=== PATIENT | female | born 1955 | race Caucasian/White ===

== ENCOUNTER 2018-09-06 20:35 | Emergency (ER) | payer BC ==
[2018-09-06 20:45] VITALS: BP 153/80
[2018-09-06] MEDS ORDERED: Alum Hydrox/Mag Hydrox/Simeth 30 ML, Lidocaine 2% 15 ML PO ONE ×2 (22:21)
--- NOTE | 2018-09-06 22:29 | EDM.PDOC ---
ED HPI GENERAL MEDICAL PROBLEM - General Chief Complaint: Chest Pain Stated Complaint: CHEST PAIN Time Seen by Provider: 09/06/18 20:56 Source of Information: Reports: Patient, Family History Limitations: Reports: No Limitations - History of Present Illness INITIAL COMMENTS - FREE TEXT/NARRATIVE: 63 yo F comes to the ED today with and daughter for chest pain radiating to her L arm and jaw since around 6pm. Pt is not the best historian. She states she has had this kind of pain before, was worked up here and [place] a few years ago but was not diagnosed with heart attack or CAD that the pt can remember. She does have a family h/o "heart issues", she is unsure what her mother had but her father did have DC. She took 4 baby ASA at home and Tums with no relief. She also c/o of mild headache and some nausea. She denies F /C, V/D, cough, runny nose, SOB or any other symptoms at this time. She does have a h/o of GERD, hiatal hernia, and lap band and used to take Gaviscon and Zantac after having an endoscopy "many years ago". She was only on it for 6 months and has not followed up with GI since. She did have "spicy" pork chops tonight, which may be contributing to her pain. She also does admit to some stress in her life as she just quit her job in May and "feels bad" for the people still there. PCP is in [place]. Left Chest Pain Score (Numeric/FACES): 4 - Related Data Allergies Allergy/AdvReac Type Severity Reaction Status Date / Time Ufketga-Cfq-Qyp Reductase AdvReac Muscle Verified 09/06/18 20:45 Inhibitor Aches Home Meds: Home Meds Atenolol 50 mg PO DAILY 09/02/15 [History] Cholecalciferol (Vitamin D3) [Vitamin D3] 1,000 unit PO DAILY 09/02/15 [History] Losartan [Cozaar] 50 mg PO DAILY 09/02/15 [History] Naproxen Sodium [Aleve] 220 mg PO Q6HR PRN 09/02/15 [History] Triamterene/Hydrochlorothiazid [Triamterene-HCTZ 37.5-25 MG] 1 tab PO DAILY 07/19 [History] Past Medical History HEENT History: Reports: Impaired Vision Other HEENT History: wears glasses Cardiovascular History: Reports: High Cholesterol, Hypertension Respiratory History: Reports: Sleep Apnea, Other (See Below) Other Respiratory History: wears CPAP Gastrointestinal History: Reports: GERD, Hiatal Hernia Genitourinary History: Reports: Renal Calculus Musculoskeletal History: Reports: Osteoarthritis, Other (See Below) Neurological History: Reports: Headaches, Chronic Endocrine/Metabolic History: Reports: Obesity/BMI 30+ Dermatologic History: Reports: Other (See Below) Other Dermatologic History: skin tags - Past Surgical History GI Surgical History: Reports: Cholecystectomy, Colonoscopy Musculoskeletal Surgical History: Reports: Knee Replacement Social & Family History - Tobacco Use Smoking Status *Q: Never Smoker - Caffeine Use Caffeine Use: Reports: Coffee - Recreational Drug Use Recreational Drug Use: No - Living Situation & Occupation Living situation: Reports: , with Family ED ROS GENERAL - Review of Systems Review Of Systems: ROS reveals no pertinent complaints other than HPI. ED EXAM, GENERAL - Physical Exam Exam: See Below Exam Limited By: No Limitations (not the best historian) General Appearance: Alert, WD/WN, Anxious Eye Exam: Bilateral Eye: EOMI, Normal Inspection, PERRL Ears: Normal External Exam, Hearing Grossly Normal Nose: Normal Inspection, Normal Mucosa, No Blood Throat/Mouth: Normal Inspection, Normal Lips, Normal Teeth, Normal Gums, Normal Oropharynx, Normal Voice, No Airway Compromise Head: Atraumatic, Normocephalic Neck: Normal Inspection, Supple, Non-Tender, Full Range of Motion Respiratory/Chest: No Respiratory Distress, Lungs Clear, Normal Breath Sounds, No Accessory Muscle Use, Chest Non-Tender Cardiovascular: Normal Peripheral Pulses, Regular Rate, Rhythm, No Edema, No Gallop, No JVD, No Murmur, No Rub, Other (distant heart sounds) GI/Abdominal: Normal Bowel Sounds, Soft, Non-Tender, No Organomegaly, No Distention, No Abnormal Bruit, No Mass Back Exam: Normal Inspection Extremities: Normal Inspection, Normal Range of Motion, Non-Tender, Normal Capillary Refill, No Pedal Edema Psychiatric: Anxious Skin Exam: Warm, Dry, Intact, Normal Color, No Rash Course - Vital Signs Last Recorded V/S: Last Vital Signs Temp 96.7 F 09/06/18 20:39 Pulse 62 09/06/18 20:39 Resp 26 H 09/06/18 20:39 BP 153/80 H 09/06/18 20:39 Pulse Ox 98 09/06/18 20:39 - Orders/Labs/Meds Orders: Active Orders 24 hr Category Date Time Status EKG Documentation Completion [RC] ASDIRECTED Care 09/06/18 20:58 Active CXR [Chest 1V Frontal] [CR] Stat Exams 09/06/18 20:57 Taken EKG 12 Lead [EK] Stat Ther 09/06/18 20:57 Ordered Labs: Laboratory Tests 09/06/18 Range/Units 21:00 CK-MB (CK-2) 1.3 (0-3.6) ng/ml Troponin I 0.026 (0.00-0.056) ng/mL C-Reactive Protein 1.0 (<1.0) mg/dL Meds: Medications Discontinued Medications Generic Name Dose Route Start Last Admin Trade Name Freq PRN Reason Stop Dose Admin Al Hydroxide/Mg Hydroxide 30 0 ml 09/06/18 22:21 09/06/18 22:34 ml/ Lidocaine HCl 15 ml PO 09/06/18 22:22 45 ml ONETIME ONE Administration - Re-Assessments/Exams Free Text/Narrative Re-Assessment/Exam: 09/06/18 20:57 I have ordered CXR, Troponin, CKMB, CPR, EKG 09/06/18 22:31 EKG shows NSR, no ST elevation. Troponin 0.026, CKMB 1/3, CRP [address] Torres and myself- nothing acute seen at this time Will give GI cocktail 09/06/18 22:49 Pt is feeling better after the GI Cocktail and ready to go home. Departure - Departure Time of Disposition: 22:51 Disposition: Home, Self-Care 01 Condition: Good Clinical Impression: Gastroesophageal reflux disease Instructions: Gastroesophageal Reflux Disease, Adult, [id number] Referrals: PCP,Not In Area [Primary Care Provider] - Forms: ED Department Discharge Additional Instructions: You were seen in the ED today for chest pain. DC was ruled out as your labs and EKG were negative. With your history of GERD, hiatal hernia and the somewhat spicy meal you had tonight, it is likely you are suffering from gastric reflux. You were given a GI cocktail with some relief while here. Recommend restarting cnte-ctm-pocfkac Zantec and following up with GI doctor. Also recommend follow up with your primary care provider for other chronic concerns such as your neck pain. Please return to ED if new or worsening symptoms. - My Orders Last 24 Hours: My Active Orders 09/06/18 20:57 CXR [Chest 1V Frontal] [CR] Stat EKG 12 Lead [EK] Stat 09/06/18 20:58 EKG Documentation Completion [RC] ASDIRECTED - Assessment/Plan Last 24 Hours: My Active Orders 09/06/18 20:57 CXR [Chest 1V Frontal] [CR] Stat EKG 12 Lead [EK] Stat 09/06/18 20:58 EKG Documentation Completion [RC] ASDIRECTED
--- NOTE | 2018-09-07 07:06 | CR ---
Chest: Portable view of the chest was obtained. Comparison: Prior chest x-ray of 10/01/15. Slight blunting of the lateral left costophrenic angle is seen which appears chronic. Minimal atelectasis is seen within the left midlung. Lungs otherwise are clear. Heart size and mediastinum are within normal limits for portable technique. Surgical clips are seen from prior cholecystectomy. Bony structures are unremarkable. Impression: 1. Incidental findings. Nothing acute is seen. Diagnostic code #2
== END 2018-09-06 23:05 | disposition home or self-care (01) ==
LOC: JD.ED 20:35
DX: K21.9 Gastro-esophageal reflux disease without esophagitis (principal); I10 Essential (primary) hypertension; E66.9 Obesity, unspecified; Z88.8 Allergy status to other drugs, medicaments and biological substances; Z79.899 Other long term (current) drug therapy
CPT/HCPCS: 36415; 71045; 82553; 84484; 86140; 93005; 99285; A9270; 93010; 99283

== ENCOUNTER 2021-06-20 17:27 | Emergency (ER) | payer MEDICARE, BC ==
[2021-06-20 17:39] VITALS: BP 187/103; PULSE 63
[2021-06-20] MEDS ORDERED: Sodium Chloride 0.9% 1,000 ML IV STA (18:41)
[2021-06-20] MEDS ORDERED: Ondansetron 4 MG/2 ML SDV IVPUSH ONE (18:41)
[2021-06-20] MEDS ORDERED: HYDROmorphone 0.5 MG/0.5 ML Syringe IVPUSH ONE ×2 (18:41→19:25)
[2021-06-20] MEDS ORDERED: Ketorolac 30 MG/ML SDV IVPUSH ONE (19:51)
--- NOTE | 2021-06-20 20:39 | EDM.PDOC ---
ED HPI GENERAL MEDICAL PROBLEM - General Chief Complaint: Flank Pain Stated Complaint: side pain Time Seen by Provider: 06/20/21 17:38 Source of Information: Reports: Patient, Family, RN Notes Reviewed History Limitations: Reports: No Limitations - History of Present Illness INITIAL COMMENTS - FREE TEXT/NARRATIVE: Is a 66-year-old female presenting to the emergency department with complaints of right flank pain. Symptoms began this morning. She describes it as stabbing pain which radiates from her right flank around her abdomen and sometimes down into her groin. Earlier in the day, the pain was waxing and waning, however it is much more constant now. She does have a history significant for kidney stones, some of which would have required lithotripsy. She states this feels similar to a kidney stone but that it is more constant than her kidney stones normally are. Denies any obvious blood in her urine. She has been having nausea and vomiting but denies any diarrhea. She is had no fever or chills. Right Flank Pain Score (Numeric/FACES): 6 - Related Data Allergies Allergy/AdvReac Type Severity Reaction Status Date / Time Grxnbtn-BEE-YuY Reductase AdvReac Muscle Verified 06/20/21 17:40 Inhibitor Aches [Aieausw-Goo-Qoy Reductase Inhibitor] Home Meds: Home Meds Cholecalciferol (Vitamin D3) [Vitamin D3] 1,000 unit PO DAILY 09/02/15 [History] Losartan [Cozaar] 50 mg PO DAILY 09/02/15 [History] Triamterene/Hydrochlorothiazid [Triamterene-HCTZ 37.5-25 MG] 1 tab PO DAILY 09/02/15 [History] atenoloL [Atenolol] 50 mg PO DAILY 09/02/15 [History] Past Medical History HEENT History: Reports: Impaired Vision Other HEENT History: wears glasses Cardiovascular History: Reports: High Cholesterol, Hypertension Respiratory History: Reports: Sleep Apnea, Other (See Below) Other Respiratory History: wears CPAP Gastrointestinal History: Reports: GERD, Hiatal Hernia Genitourinary History: Reports: Renal Calculus Musculoskeletal History: Reports: Osteoarthritis Neurological History: Reports: Headaches, Chronic Endocrine/Metabolic History: Reports: Obesity/BMI 30+ Dermatologic History: Reports: Other (See Below) Other Dermatologic History: skin tags - Past Surgical History HEENT Surgical History: Reports: Tonsillectomy Cardiovascular Surgical History: Reports: Other (See Below) Other Cardiovascular Surgeries/Procedures: angiogram GI Surgical History: Reports: Cholecystectomy, Colonoscopy Female Surgical History: Reports: Hysterectomy Musculoskeletal Surgical History: Reports: Knee Replacement Social & Family History - Tobacco Use Tobacco Use Status *Q: Never Tobacco User Second Hand Smoke Exposure: No - Caffeine Use Caffeine Use: Reports: Coffee, Soda - Recreational Drug Use Recreational Drug Use: No - Living Situation & Occupation Living situation: Reports: , with Family ED ROS GENERAL - Review of Systems Review Of Systems: Comprehensive ROS is negative, except as noted in HPI. ED EXAM, RENAL/ - Physical Exam Exam: See Below Exam Limited By: No Limitations General Appearance: Alert, Mild Distress Respiratory/Chest: No Respiratory Distress, Lungs Clear, Normal Breath Sounds, No Accessory Muscle Use, Chest Non-Tender Cardiovascular: Normal Peripheral Pulses, Regular Rate, Rhythm, No Edema, No Gallop, No JVD, No Murmur, No Rub GI/Abdominal: Normal Bowel Sounds, Soft, Non-Tender, No Organomegaly, No Distention, No Abnormal Bruit, No Mass Back Exam: Normal Inspection, Full Range of Motion, CVA Tenderness (R). No: CVA Tenderness (L) Neurological: Alert, Oriented, Normal Cognition, Normal Gait, No Motor/Sensory Deficits Psychiatric: Normal Affect, Normal Mood Skin Exam: Warm, Dry, Intact, Normal Color, No Rash Course - Vital Signs Last Recorded V/S: Last Vital Signs Temp 98.0 F 06/20/21 17:38 Pulse 63 06/20/21 17:38 Resp 20 06/20/21 17:38 BP 187/103 H 06/20/21 17:38 Pulse Ox 96 06/20/21 17:38 - Orders/Labs/Meds Orders: Active Orders 24 hr Category Date Time Status Abdomen Pelvis wo Cont [CT] Stat Exams 06/20/21 18:41 Taken CULTURE URINE [MREF] Stat Lab 06/20/21 20:40 Received Sodium Chloride 0.9% [Normal Saline] 1,000 ml Med 06/20/21 18:41 Active IV NOW Medication Orders Sodium Chloride (Normal Saline) 1,000 mls @ 150 mls/hr IV NOW STA Stop: 06/21/21 01:20 Last Admin: 06/20/21 18:54 Dose: 150 mls/hr Documented by: MICHAEL Labs: Laboratory Tests 06/20/21 06/20/21 06/20/21 Range/Units 18:57 18:57 20:40 WBC 11.55 H (3.98-10.04) K/mm3 RBC 5.36 H (3.98-5.22) M/mm3 Hgb 15.4 D (11.2-15.7) gm/dl Hct 48.0 H (34.1-44.9) % MCV 89.6 (79.4-94.8) fl MCH 28.7 (25.6-32.2) pg MCHC 32.1 L (32.2-35.5) g/dl RDW Std Deviation 42.2 (36.4-46.3) fL Plt Count 251 (182-369) K/mm3 MPV 10.1 (9.4-12.3) fl Neut % (Auto) 79.6 H (34.0-71.1) % Lymph % (Auto) 10.7 L (19.3-51.7) % [place] % (Auto) 8.6 (4.7-12.5) % Eos % (Auto) 0.7 (0.7-5.8) Baso % (Auto) 0.2 (0.1-1.2) % Neut # (Auto) 9.20 H (1.56-6.13) K/mm3 Lymph # (Auto) 1.24 (1.18-3.74) K/mm3 [place] # (Auto) 0.99 H (0.24-0.36) K/mm3 Eos # (Auto) 0.08 (0.04-0.36) K/mm3 Baso # (Auto) 0.02 (0.01-0.08) K/mm3 Sodium 138 (136-145) mEq/L Potassium 4.4 (3.5-5.1) mEq/L Chloride 102 (98-107) mEq/L Carbon Dioxide 28 (21-32) mEq/L Anion Gap 12.4 (5-15) BUN 18 (7-18) mg/dL Creatinine 1.1 H (0.55-1.02) mg/dL Est Cr Clr Drug Dosing 39.79 mL/min Estimated GFR (MDRD) 50 (>60) mL/min BUN/Creatinine Ratio 16.4 (14-18) Glucose 129 H (70-99) mg/dL Calcium 10.7 H D (8.5-10.1) mg/dL Total Bilirubin 0.7 (0.2-1.0) mg/dL AST 24 (15-37) U/L ALT 37 (14-59) U/L Alkaline Phosphatase 93 (46-116) U/L C-Reactive Protein 0.6 (<1.0) mg/dL Total Protein 7.9 (6.4-8.2) g/dl Albumin 4.0 (3.4-5.0) g/dl Globulin 3.9 gm/dL Albumin/Globulin Ratio 1.0 (1-2) Urine Color Dark yellow (Yellow) Urine Appearance Cloudy H (Clear) Urine pH 5.5 (5.0-8.0) Ur Specific [place] 1.025 (1.005-1.030) Urine Protein Trace H (Negative) Urine Glucose (UA) Negative (Negative) Urine Ketones Negative (Negative) Urine Occult Blood 3+ H (Negative) Urine Nitrite Positive H (Negative) Urine Bilirubin Negative (Negative) Urine Urobilinogen 0.2 (0.2-1.0) Ur Leukocyte Esterase 1+ H (Negative) Urine RBC >100 H (0-5) /hpf Urine WBC 30-40 H (0-5) /hpf Urine WBC Clumps Few (NOT SEEN) /hpf Ur Squamous Epith Cells 5-10 H (0-5) /hpf Urine Bacteria Many H (FEW) /hpf Urine Mucus Not seen (FEW) /hpf SARS-CoV-2 RNA (PATRICIA) (NEGATIVE) 06/20/21 Range/Units 21:53 WBC (3.98-10.04) K/mm3 RBC (3.98-5.22) M/mm3 Hgb (11.2-15.7) gm/dl Hct (34.1-44.9) % MCV (79.4-94.8) fl MCH (25.6-32.2) pg MCHC (32.2-35.5) g/dl RDW Std Deviation (36.4-46.3) fL Plt Count (182-369) K/mm3 MPV (9.4-12.3) fl Neut % (Auto) (34.0-71.1) % Lymph % (Auto) (19.3-51.7) % [place] % (Auto) (4.7-12.5) % Eos % (Auto) (0.7-5.8) Baso % (Auto) (0.1-1.2) % Neut # (Auto) (1.56-6.13) K/mm3 Lymph # (Auto) (1.18-3.74) K/mm3 [place] # (Auto) (0.24-0.36) K/mm3 Eos # (Auto) (0.04-0.36) K/mm3 Baso # (Auto) (0.01-0.08) K/mm3 Sodium (136-145) mEq/L Potassium (3.5-5.1) mEq/L Chloride (98-107) mEq/L Carbon Dioxide (21-32) mEq/L Anion Gap (5-15) BUN (7-18) mg/dL Creatinine (0.55-1.02) mg/dL Est Cr Clr Drug Dosing mL/min Estimated GFR (MDRD) (>60) mL/min BUN/Creatinine Ratio (14-18) Glucose (70-99) mg/dL Calcium (8.5-10.1) mg/dL Total Bilirubin (0.2-1.0) mg/dL AST (15-37) U/L ALT (14-59) U/L Alkaline Phosphatase (46-116) U/L C-Reactive Protein (<1.0) mg/dL Total Protein (6.4-8.2) g/dl Albumin (3.4-5.0) g/dl Globulin gm/dL Albumin/Globulin Ratio (1-2) Urine Color (Yellow) Urine Appearance (Clear) Urine pH (5.0-8.0) Ur Specific [place] (1.005-1.030) Urine Protein (Negative) Urine Glucose (UA) (Negative) Urine Ketones (Negative) Urine Occult Blood (Negative) Urine Nitrite (Negative) Urine Bilirubin (Negative) Urine Urobilinogen (0.2-1.0) Ur Leukocyte Esterase (Negative) Urine RBC (0-5) /hpf Urine WBC (0-5) /hpf Urine WBC Clumps (NOT SEEN) /hpf Ur Squamous Epith Cells (0-5) /hpf Urine Bacteria (FEW) /hpf Urine Mucus (FEW) /hpf SARS-CoV-2 RNA (PATRICIA) Negative (NEGATIVE) Meds: Medications Generic Name Dose Route Start Last Admin Trade Name Frealeisha PRN Reason Stop Dose Admin Sodium Chloride 1,000 mls @ 150 mls/hr 06/20/21 18:41 06/20/21 18:54 Normal Saline IV 06/21/21 01:20 150 mls/hr NOW STA Administration Discontinued Medications Generic Name Dose Route Start Last Admin Trade Name Frealeisha PRN Reason Stop Dose Admin Hydromorphone HCl 0.5 mg 06/20/21 18:41 06/20/21 18:54 Hydromorphone 0.5 Mg/0.5 Ml Syringe IVPUSH 06/20/21 18:42 0.5 mg ONETIME ONE Administration Hydromorphone HCl 0.5 mg 06/20/21 19:25 06/20/21 19:41 Hydromorphone 0.5 Mg/0.5 Ml Syringe IVPUSH 06/20/21 19:26 0.5 mg ONETIME ONE Administration Ceftriaxone Sodium 2 gm/ 100 mls @ 200 mls/hr 06/20/21 21:41 06/20/21 21:58 Sodium Chloride IV 06/20/21 22:10 200 mls/hr ONETIME ONE Administration Ketorolac Tromethamine 15 mg 06/20/21 19:51 06/20/21 19:59 Ketorolac 30 Mg/Ml Sdv IVPUSH 06/20/21 19:52 15 mg ONETIME ONE Administration Ondansetron HCl 4 mg 06/20/21 18:41 06/20/21 18:54 Ondansetron 4 Mg/2 Ml Sdv IVPUSH 06/20/21 18:42 4 mg ONETIME ONE Administration - Re-Assessments/Exams Free Text/Narrative Re-Assessment/Exam: Patient is a 66-year-old female presenting with complaints of right flank pain with radiation to her right side and down into her groin. Symptoms began this morning. On exam, she does have right-sided CVA tenderness. Given her history and presentation, patient is likely suffering from kidney stone. I have ordered blood work, urinalysis, CT scan of the abdomen pelvis without contrast. We will give her IV fluids of normal saline at 150 mill per hour, Dilaudid, and Zofran. 06/20/21 20:48 Hematology is significant for WBC minimally elevate 11.55, creatinine 1.1. Otherwise unremarkable. CT scan of the abdomen pelvis shows a 6 mm calculus at the right UPJ causing right hydronephrosis. Patient has not provided a urine sample thus far. Pain is well controlled. We will await results of urinalysis to determine disposition. 06/20/21 21:48 Urinalysis significant for 3+ occult blood, positive nitrites, 1+ leukocyte esterase, greater than 100 RBCs, 30-40 WBCs, 5-10 squamous epithelials, and many bacteria. He needs results, did consult with urologist at [facility], Dr. Lauren. He would like patient transferred down at this evening with plan to put in a stent in the morning. I will give her Rocephin 2 g IV and have ordered Covid testing. Once Covid test results are back, I will speak with the hospitalist at [facility] to arrange admission. Patient will be transported by her to [place]. 06/20/21 2300 Covid swab was negative. Case was discussed with hospitalist, Dr. Nixon at [facility] in [place]. She has accepted patient for transfer. She will go by private vehicle. Pain is well controlled at this time. Departure - Departure Time of Disposition: 23:00 Disposition: DC/Tfer to Acute Hospital 02 Condition: Good Clinical Impression: UTI, Urinary tract infectious disease, Kidney stone on right side - Discharge Information *PRESCRIPTION DRUG MONITORING PROGRAM REVIEWED*: No *COPY OF PRESCRIPTION DRUG MONITORING REPORT IN PATIENT KAITLIN: No Referrals: PCP,Not In Area [Primary Care Provider] - Forms: ED Department Discharge Additional Instructions: Drive directly to [facility] and check-in at their emergency department. Do not eat or drink anything enroute. Sepsis Event Note (ED) - Focused Exam Vital Signs: Vital Signs Temp Pulse Resp BP Pulse Ox 06/20/21 17:38 98.0 F 63 20 187/103 H 96 - My Orders Last 24 Hours: My Active Orders 06/20/21 18:41 Abdomen Pelvis wo Cont [CT] Stat Sodium Chloride 0.9% [Normal Saline] 1,000 ml IV NOW 06/20/21 20:40 CULTURE URINE [MREF] Stat - Assessment/Plan Last 24 Hours: My Active Orders 06/20/21 18:41 Abdomen Pelvis wo Cont [CT] Stat Sodium Chloride 0.9% [Normal Saline] 1,000 ml IV NOW 06/20/21 20:40 CULTURE URINE [MREF] Stat
[2021-06-20] MEDS ORDERED: cefTRIAXone 2 GM in Sodium Chloride 0.9% 100 ML IV ONE (21:41)
--- NOTE | 2021-06-21 08:57 | CT ---
CT abdomen and pelvis Technique: Multiple axial sections were obtained from above the dome of the diaphragm inferiorly through the pubic symphysis. Intravenous and oral contrast were not utilized. Study has been performed as a ureteral stone protocol. Comparison: Prior CT abdomen and pelvis study of 09/11/20. Findings: Small obstructing calculus is seen within the proximal right ureter located in the region of the UPJ. This calculus measures about 5 mm. This causes proximal hydronephrosis of the right kidney. Other portions of the right and left kidneys show no additional calcifications. Small cyst is noted within the right kidney measuring about 1.4 cm. Small vascular calcification is seen within the left kidney. Visualized lung bases show minimal density. Findings most likely are due to areas of atelectasis. Noncontrast appearance of the liver shows no focal abnormality. Small hiatal hernia is seen. Lap band is present. Adrenal glands show no nodule. Pancreas shows no discrete abnormality. Abdominal aorta shows mild atherosclerotic calcification with no aneurysm. No retroperitoneal adenopathy or mesenteric abnormalities are seen. No pelvic mass or adenopathy is noted. Appendix is seen and is felt to be within normal limits. Bone window settings were reviewed which show scattered degenerative change throughout the spine involving disc space narrowing, endplate spurring and scattered degenerative apophyseal change. Impression: 1. 5 mm obstructing calculus within the proximal right ureter at the UPJ. 2. Other findings most likely incidental as described above. Diagnostic code #3 I agree with preliminary report from [facility], finalized on 06/20/21, 8:46 PM [employer], code 1
== END 2021-06-20 23:10 ==
LOC: JD.ED 17:27
DX: N13.2 Hydronephrosis with renal and ureteral calculous obstruction (principal); N39.0 Urinary tract infection, site not specified; I10 Essential (primary) hypertension; D72.829 Elevated white blood cell count, unspecified; E66.9 Obesity, unspecified; Z68.43 Body mass index [BMI] 50.0-59.9, adult; Z88.8 Allergy status to other drugs, medicaments and biological substances; Z79.899 Other long term (current) drug therapy; Z20.822 Contact with and (suspected) exposure to COVID-19
CPT/HCPCS: 36415; 74176; 80053; 81001; 85025; 86140; 87086; 87088; 87186; 96365; 96375; 96376; 99285; J0696; J1170; J1885; J2405; J7030; U0002